=== PATIENT | male | born 1970 | race Caucasian/White ===

== ENCOUNTER 2017-09-20 15:09 | Emergency (ER) | payer MEDICAID ==
[~2017-09-20] VITALS: Ht 152.4 cm; Wt 64.0 kg
[2017-09-20] MEDS ORDERED: SODIUM CHLORIDE 0.9% 1,000 ML IV ONE (15:28)
[2017-09-20 16:11] LABS: BASOPHILS % 0.3 % (0.0-2.0); EOSINOPHILS % 2.5 % (0.0-5.0); HEMATOCRIT. 38.2 % (42.0-52.0); HEMOGLOBIN. 12.8 g/dL (14.0-18.0); LYMPHOCYTES % 40.5 % (20.0-50.0); MEAN CORPUSCULAR HEMOGLOBIN 31.4 pg (28.0-32.0); MEAN CORPUSCULAR VOLUME 93.9 fL (80.0-94.0); MEAN PLATELET VOLUME 8.3 fl (7.4-10.4); MONOCYTES % 8.9 % (2.0-8.0); NEUTROPHILS % 47.8 % (40.0-76.0); PLATELET 331 x1000/uL (130-400); RED BLOOD CELL COUNT 4.07 mill/uL (4.7-6.1); RED CELL DISTRIBUTION WIDTH 14.3 % (11.6-14.6)
[2017-09-20 16:25] LABS: CARBON DIOXIDE 31 mEq/L (21-32); CHLORIDE 105 mEq/L (98-107); ETHANOL BLOOD < 10 mg/dL
[2017-09-20 17:44] LABS: CLARITY URINE CLEAR (CLEAR); COLOR URINE YELLOW (YELLOW); KETONES URINE TRACE (NEGATIVE); LEUKOCYTE ESTERASE URINE TRACE (NEGATIVE); NITRITE URINE NEGATIVE (NEGATIVE); OCCULT BLOOD URINE 2+ (NEGATIVE); PH URINE 5.5 (4.5-8.0); PROTEIN URINE NEGATIVE (NEGATIVE); UROBILINOGEN URINE 0.2 E.U./dL (0.2-1.0)
[2017-09-20 17:57] LABS: *AMPHETAMINES SCREEN URINE NEGATIVE (NEGATIVE); *BARBITURATES SCREEN URINE NEGATIVE (NEGATIVE); *BENZODIAZEPINES SCREEN URINE PRESUMTIVE POSITIVE (NEGATIVE); *COCAINE SCREEN URINE NEGATIVE (NEGATIVE); CANNABINOID URINE SCREEN PRESUMTIVE POSITIVE (NEGATIVE); METHADONE URINE SCREEN NEGATIVE (NEGATIVE); OPIATES URINE SCREEN PRESUMTIVE POSITIVE (NEGATIVE); PHENCYCLIDINE URINE SCREEN NEGATIVE (NEGATIVE)
[2017-09-20] MEDS ORDERED: ACETYLCYSTEINE 200MG/ML 20% VIAL 30ML PO ONE (19:00)
[2017-09-20] MEDS ORDERED: SODIUM CHLORIDE 0.45% IV NR (19:45)
[2017-09-20] MEDS ORDERED: ACETYLCYSTEINE IV NR (19:45)
[2017-09-20 20:56] VITALS: BP 142/77
== END 2017-09-20 20:59 | disposition left against medical advice (07) ==
LOC: ER 15:27
DX: T40.601A Poisoning by unspecified narcotics, accidental (unintentional), initial encounter (principal); T39.1X1A Poisoning by 4-Aminophenol derivatives, accidental (unintentional), initial encounter; R41.82 Altered mental status, unspecified; F15.10 Other stimulant abuse, uncomplicated; Y92.098 Other place in other non-institutional residence as the place of occurrence of the external cause; N39.0 Urinary tract infection, site not specified; F17.210 Nicotine dependence, cigarettes, uncomplicated; F12.90 Cannabis use, unspecified, uncomplicated; Z87.442 Personal history of urinary calculi
CPT/HCPCS: 36415; 70450; 71010; 80053; 80305; 80307; 80329; 81001; 85025; 93005; 96361; 96365; 99285; G0482; J0132; J7030